=== PATIENT | female | born 2000 | race Caucasian/White ===

== ENCOUNTER 2021-12-19 13:14 | Emergency (ER) | payer OTHER ==
[2021-12-19 13:29] VITALS: TEMP 98; BMI 31.8
[2021-12-19] MEDS ORDERED: SODIUM CHLORIDE 0.9% 500 ML INFUS.BAG IV ONE (14:55)
[2021-12-19] MEDS ORDERED: ONDANSETRON 4 MG/2 ML VIAL IVPUSH ONE (14:56)
[2021-12-19] MEDS ORDERED: ACETAMINOPHEN 1000 MG/100 ML BAG IVPB ONE (14:56)
[2021-12-19] MEDS ORDERED: ONDANSETRON 4 MG/2 ML VIAL ONE (15:14)
[2021-12-19] MEDS ORDERED: ACETAMINOPHEN INJECTION 100 ML IVPB ONE (15:14)
[2021-12-19 16:19] LABS: HEMATOCRIT 37.1 % (32.4-45.2); HEMOGLOBIN 12.9 GM/dL (10.7-15.3); MCHC 34.8 g/dl (32.0-36.0); MEAN PLT VOLUME 8.3 fl (7.5-11.1); PLATELET COUNT 265 10^3/uL (134-434); RBC 4.31 M/mm3 (3.60-5.2); RDW 13.1 % (11.6-15.6); WHITE BLOOD COUNT 11.7 K/mm3 (4.0-10.0)
[2021-12-19 16:23] LABS: EPI CELLS >36 /uL (0-25.1); HYALINE CASTS 4 /uL (0-3.1); URINE APPEARANCE CLOUDY; URINE BACTERIA 2384 /uL (0-1359); URINE BILIRUBIN NEGATIVE (NEGATIVE); URINE COLOR YELLOW; URINE GLUCOSE (UA) NEGATIVE (NEGATIVE); URINE KETONE 3+ (NEGATIVE); URINE LEUK ESTERASE TRACE (NEGATIVE); URINE NITRITE NEGATIVE (NEGATIVE); URINE PROTEIN NEGATIVE (NEGATIVE); URINE UROBILINOGEN 0.2 mg/dL (0.2-1.0); URINE WBC 46 /uL (0-25.8)
[2021-12-19] MEDS ORDERED: LACTATED RINGERS SOLUTION 1000 ML INFUS.BAG IV ONE (16:32)
[2021-12-19 16:44] LABS: ALBUMIN 4.1 g/dl (3.4-5.0); CALCIUM 9.4 mg/dL (8.5-10.1)
[2021-12-19 16:45] LABS: BLOOD UREA NITROGEN 5.4 mg/dL (7-18)
[2021-12-19 16:48] LABS: CREATININE 0.5 mg/dL (0.55-1.3)
[2021-12-19 16:49] LABS: BILIRUBIN,TOTAL 0.4 mg/dL (0.2-1); TOT PROT 7.6 g/dl (6.4-8.2)
[2021-12-19 17:09] VITALS: BP 139/82; PULSE 85; RESP 16
[2021-12-19 17:37] LABS: ANISOCYTOSIS 0; MACROCYTOSIS 0
[2021-12-19 17:44] LABS: URINE RBC 62 /uL (0-23.9)
== END 2021-12-19 17:25 | disposition home or self-care (01) ==
LOC: JER 13:14
PROC: 3E0333Z Introduction of Anti-inflammatory into Peripheral Vein, Percutaneous Approach (ICD-10-PCS; principal; 2021-12-19)
PROC: 3E033GC Introduction of Other Therapeutic Substance into Peripheral Vein, Percutaneous Approach (ICD-10-PCS; 2021-12-19)
DX: O26.892 Other specified pregnancy related conditions, second trimester (principal); R10.31 Right lower quadrant pain; Z3A.18 18 weeks gestation of pregnancy
CPT/HCPCS: 36415; 76705-TC; 76775-TC; 76815; 80053; 81003; 85025; 87086; 99285-25

== ENCOUNTER 2021-12-20 21:56 | Observation (INO) | payer OTHER ==
[2021-12-20] MEDS ORDERED: ACETAMINOPHEN 1000 MG/100 ML BAG IVPB ONE (23:06)
[2021-12-20] MEDS ORDERED: ACETAMINOPHEN INJECTION 100 ML IVPB ONE (23:29)
[2021-12-20 23:51] LABS: BASO % 0.5 % (0-2.0); EOS % 0.8 % (0-4.5); HEMATOCRIT 33.7 % (32.4-45.2); HEMOGLOBIN 12.2 GM/dL (10.7-15.3); LYMPH % 15.8 % (8-40); MCH 31.2 pg (25.7-33.7); MCHC 36.2 g/dl (32.0-36.0); MEAN CELL VOLUME 86.2 fl (80-96); MEAN PLT VOLUME 7.4 fl (7.5-11.1); MONO % 8.2 % (3.8-10.2); NEUT % 74.7 % (42.8-82.8); PLATELET COUNT 242 10^3/uL (134-434); RBC 3.91 M/mm3 (3.60-5.2); RDW 12.9 % (11.6-15.6); WHITE BLOOD COUNT 8.1 K/mm3 (4.0-10.0)
[2021-12-21 00:14] LABS: SODIUM 138 mmol/L (136-145)
[2021-12-21 00:18] LABS: ALBUMIN 3.8 g/dl (3.4-5.0)
[2021-12-21 00:25] LABS: HCG,QUALITATIVE URINE Positive
[2021-12-21 00:26] LABS: ALK PHOS 62 U/L (45-117); ANION GAP 8 MMOL/L (8-16); BILIRUBIN,TOTAL 0.3 mg/dL (0.2-1); BLOOD UREA NITROGEN 7.4 mg/dL (7-18); CALCIUM 9.2 mg/dL (8.5-10.1); CHLORIDE 105 mmol/L (98-107); CO2 26 mmol/L (21-32); CREATININE 0.5 mg/dL (0.55-1.3); GLUCOSE,RANDOM 91 mg/dL (74-106); SGOT/AST 20 U/L (15-37); SGPT/ALT 47 U/L (13-61); TOT PROT 7.1 g/dl (6.4-8.2)
[2021-12-21 00:27] LABS: EPI CELLS 14 /uL (0-25.1); HYALINE CASTS 1 /uL (0-3.1); PH,URINE 6.5 (5.0-8.0); URINE APPEARANCE CLEAR; URINE BACTERIA 73 /uL (0-1359); URINE BILIRUBIN NEGATIVE (NEGATIVE); URINE COLOR YELLOW; URINE GLUCOSE (UA) NEGATIVE (NEGATIVE); URINE KETONE NEGATIVE (NEGATIVE); URINE LEUK ESTERASE NEGATIVE (NEGATIVE); URINE NITRITE NEGATIVE (NEGATIVE); URINE PROTEIN NEGATIVE (NEGATIVE); URINE RBC 29 /uL (0-23.9); URINE UROBILINOGEN 0.2 mg/dL (0.2-1.0); URINE WBC 3 /uL (0-25.8)
[2021-12-21] MEDS ORDERED: ACETAMINOPHEN 1000 MG/100 ML BAG IVPB PRN (04:07)
[2021-12-21] MEDS ORDERED: CEFTRIAXONE 1 GM/50 ML BAG ONE (05:33)
[2021-12-21] MEDS: CEFTRIAXONE 1 GM in DEXTROSE 5%-WATER - 50 ML IVPB SCH (05:39)
[2021-12-21 06:18] LABS: HEMATOCRIT 31.8 % (32.4-45.2); HEMOGLOBIN 11.1 GM/dL (10.7-15.3); MCH 30.3 pg (25.7-33.7); MCHC 34.8 g/dl (32.0-36.0); PLATELET COUNT 221 10^3/uL (134-434); RBC 3.65 M/mm3 (3.60-5.2); RDW 13.1 % (11.6-15.6)
[2021-12-21 06:35] LABS: CALCIUM 8.6 mg/dL (8.5-10.1)
[2021-12-21 06:36] LABS: ALBUMIN 3.2 g/dl (3.4-5.0); MAGNESIUM 1.4 mg/dL (1.8-2.4)
[2021-12-21 06:39] LABS: CREATININE 0.5 mg/dL (0.55-1.3); PHOSPHOROUS 3.8 mg/dL (2.5-4.9)
[2021-12-21 06:40] LABS: BILIRUBIN,TOTAL 0.3 mg/dL (0.2-1); TOT PROT 6.2 g/dl (6.4-8.2)
[2021-12-21 06:53] LABS: BLOOD UREA NITROGEN 5.5 mg/dL (7-18)
[2021-12-22 03:27] VITALS: BMI 31.6
[2021-12-22 08:24] VITALS: RESP 20
[2021-12-22 08:30] LABS: BASO % 1.2 % (0-2.0); EOS % 1.5 % (0-4.5); HEMATOCRIT 33.2 % (32.4-45.2); HEMOGLOBIN 11.7 GM/dL (10.7-15.3); MCH 30.2 pg (25.7-33.7); MCHC 35.3 g/dl (32.0-36.0); MEAN CELL VOLUME 85.6 fl (80-96); MEAN PLT VOLUME 7.9 fl (7.5-11.1); MONO % 9.4 % (3.8-10.2); NEUT % 60.9 % (42.8-82.8); PLATELET COUNT 234 10^3/uL (134-434); RBC 3.88 M/mm3 (3.60-5.2); WHITE BLOOD COUNT 5.4 K/mm3 (4.0-10.0)
[2021-12-22 08:48] LABS: CALCIUM 8.9 mg/dL (8.5-10.1)
[2021-12-22] MEDS ORDERED: ACETAMINOPHEN 1000 MG/100 ML BAG IVPB PRN (08:49)
[2021-12-22 08:52] LABS: CREATININE 0.3 mg/dL (0.55-1.3)
[2021-12-22] MEDS: CEFTRIAXONE 1 GM in DEXTROSE 5%-WATER - 50 ML IVPB SCH (09:06)
[2021-12-22 09:15] VITALS: BP 129/87; PULSE 83; TEMP 99.4
== END 2021-12-22 13:44 | disposition home or self-care (01) ==
LOC: JER 21:56 → JERBED 12-21 01:40 → J7W 12-21 23:45
PROVIDERS: ADMIT Hospitalist; ATTEND Internal Medicine
PROC: 3E033NZ Introduction of Analgesics, Hypnotics, Sedatives into Peripheral Vein, Percutaneous Approach (ICD-10-PCS; principal; 2021-12-21)
PROC: 3E03329 Introduction of Other Anti-infective into Peripheral Vein, Percutaneous Approach (ICD-10-PCS; 2021-12-21)
PROC: 3E033NZ Introduction of Analgesics, Hypnotics, Sedatives into Peripheral Vein, Percutaneous Approach (ICD-10-PCS; 2021-12-21)
DX: O26.892 Other specified pregnancy related conditions, second trimester (principal); Z3A.19 19 weeks gestation of pregnancy; R10.9 Unspecified abdominal pain
CPT/HCPCS: 0241U-QW; 36415; 74181-TC; 76705-TC; 76815; 76830-TC; 80048; 80053; 81003; 83735; 84100; 84702; 84703; 85025; 85027; 87086; 96365; 96374; 96375; 96376; 99285-25; G0378

== ENCOUNTER 2022-05-10 03:40 | Inpatient (IN) | payer OTHER ==
[2022-05-10] MEDS: DEXTROSE 5%-LACTATED RINGERS 1,000 ML IV SCH ×2 (04:30→11:00)
[2022-05-10 05:35] LABS: BASO % 0.2 % (0-2.0); EOS % 0.3 % (0-4.5); HEMATOCRIT 37.1 % (32.4-45.2); HEMOGLOBIN 12.4 GM/dL (10.7-15.3); LYMPH % 8.4 % (8-40); MCHC 33.5 g/dl (32.0-36.0); MEAN CELL VOLUME 86.8 fl (80-96); MEAN PLT VOLUME 8.5 fl (7.5-11.1); NEUT % 86.1 % (42.8-82.8); PLATELET COUNT 297 10^3/uL (134-434); RBC 4.27 M/mm3 (3.60-5.2); RDW 12.7 % (11.6-15.6); WHITE BLOOD COUNT 11.3 K/mm3 (4.0-10.0)
[2022-05-10 05:37] VITALS: BMI 36.7
[2022-05-10 05:43] LABS: INR 0.96 (0.83-1.09)
[2022-05-10 05:46] LABS: ACTIVATED PTT 24.6 SECONDS (25.2-36.5)
[2022-05-10 06:02] LABS: CALCIUM 9.5 mg/dL (8.5-10.1)
[2022-05-10 06:03] LABS: BLOOD UREA NITROGEN 6.2 mg/dL (7-18)
[2022-05-10 06:06] LABS: CREATININE 0.5 mg/dL (0.55-1.3)
[2022-05-10] MEDS ORDERED: BUTORPHANOL TARTRATE 1 MG/ML VIAL ONE (08:19)
[2022-05-10] MEDS ORDERED: BUTORPHANOL TARTRATE 1 MG/ML VIAL IVPB ONE (08:19)
[2022-05-10] MEDS ORDERED: OXYTOCIN 30 UNITS in 0.9% NS 30 UNIT/500 ML INFUS.BAG IVPB ONE (08:20)
[2022-05-10] MEDS ORDERED: OXYTOCIN 30 UNITS in 0.9% NS 30 UNIT/500 ML INFUS.BAG IVPB SCH (08:30)
[2022-05-10] MEDS ORDERED: ELECTROLYTE-148 SOLN 1,000 ML IV ONE (11:45)
[2022-05-10] MEDS ORDERED: FENTANYL/BUPIVACAINE/NS/PF - PCEA - 50 ML DISP.SYRIN EP ONE (11:46)
[2022-05-10] MEDS ORDERED: NALOXONE HCL 0.4 MG/ML VIAL IVPUSH PRN (12:30)
[2022-05-10] MEDS ORDERED: FENTANYL/BUPIVACAINE/NS/PF - PCEA - 50 ML DISP.SYRIN EP SCH (12:30)
[2022-05-10] MEDS ORDERED: FENTANYL CITRATE/PF 50 MCG/ML VIAL ONE (13:20)
[2022-05-10] MEDS ORDERED: LIDOCAINE HCL 1% PRESERVATIVE FREE - 30ML VIAL ONE (14:40)
[2022-05-10] MEDS ORDERED: OXYTOCIN 20 UNITS in 0.9% NS 20 UNIT/1,000 ML INFUS.BAG IV ONE ×3 (14:40→18:39)
[2022-05-10] MEDS ORDERED: MISOPROSTOL 200 MCG TABLET ONE (15:30)
[2022-05-10] MEDS ORDERED: BENZOCAINE 20% 57 GM BOTTLE TP PRN (15:41)
[2022-05-10] MEDS ORDERED: WITCH HAZEL 50% (TUCKS) 40 PAD/JAR PAD TP PRN (15:41)
[2022-05-10] MEDS ORDERED: BENZOCAINE 28 GM HEMORRHOIDAL OINTMENT TP PRN (15:41)
[2022-05-10] MEDS ORDERED: ACETAMINOPHEN 325 MG TABLET (FP) PO PRN (15:41)
[2022-05-10] MEDS ORDERED: BISACODYL 10 MG SUPP.RECT RC PRN (15:41)
[2022-05-10] MEDS ORDERED: MISOPROSTOL 100 MCG TABLET PV ONE (15:42)
[2022-05-10] MEDS ORDERED: OXYTOCIN 20 UNITS in 0.9% NS 20 UNIT/1,000 ML INFUS.BAG IV SCH (15:45)
[2022-05-10] MEDS ORDERED: METHYLERGONOVINE MALEATE 0.2 MG/1 ML AMP IM ONE (17:30)
[2022-05-10] MEDS ORDERED: IBUPROFEN 600 MG TABLET (FP) PO ONE (17:42)
[2022-05-10] MEDS: IBUPROFEN 600 MG TABLET (FP) PO PRN (17:44)
[2022-05-10] MEDS ORDERED: CARBOPROST TROMETHAMINE 250 MCG/ML AMPUL IM ONE (18:00)
[2022-05-10] MEDS ORDERED: oxyCODONE HCL 5 MG TABLET PO ONE (18:00)
[2022-05-10] MEDS ORDERED: oxyCODONE HCL 5 MG TABLET ONE (18:05)
[2022-05-10] MEDS ORDERED: METHYLERGONOVINE MALEATE 0.2 MG TABLET (FP) PO SCH ×2 (18:30→21:30)
[2022-05-10 18:31] LABS: BASO % 0.5 % (0-2.0); HEMATOCRIT 31.4 % (32.4-45.2); HEMOGLOBIN 10.7 GM/dL (10.7-15.3); LYMPH % 7.4 % (8-40); MCH 29.5 pg (25.7-33.7); MCHC 34.1 g/dl (32.0-36.0); MEAN CELL VOLUME 86.4 fl (80-96); MEAN PLT VOLUME 8.1 fl (7.5-11.1); MONO % 8.3 % (3.8-10.2); NEUT % 83.8 % (42.8-82.8); PLATELET COUNT 238 10^3/uL (134-434); RBC 3.63 M/mm3 (3.60-5.2); RDW 12.8 % (11.6-15.6); WHITE BLOOD COUNT 14.3 K/mm3 (4.0-10.0)
[2022-05-10 18:49] LABS: CALCIUM 8.4 mg/dL (8.5-10.1)
[2022-05-10 18:50] LABS: ALBUMIN 2.7 g/dl (3.4-5.0); BLOOD UREA NITROGEN 4.5 mg/dL (7-18)
[2022-05-10 18:53] LABS: CREATININE 0.4 mg/dL (0.55-1.3)
[2022-05-10 18:54] LABS: BILIRUBIN,TOTAL 0.6 mg/dL (0.2-1)
[2022-05-10 18:55] LABS: TOT PROT 5.7 g/dl (6.4-8.2)
[2022-05-10 18:57] LABS: INR 1.03 (0.83-1.09); PROTHROMBIN TIME (PATIENT) 11.9 SEC (9.7-13.0)
[2022-05-10 21:15] VITALS: RESP 16
[2022-05-10] MEDS: METHYLERGONOVINE MALEATE 0.2 MG TABLET (FP) PO SCH (21:30)
[2022-05-11] MEDS: METHYLERGONOVINE MALEATE 0.2 MG TABLET (FP) PO SCH ×4 (01:21→13:02)
[2022-05-11 08:37] LABS: BASO % 0.5 % (0-2.0); EOS % 0.5 % (0-4.5); HEMATOCRIT 26.5 % (32.4-45.2); HEMOGLOBIN 9.1 GM/dL (10.7-15.3); LYMPH % 11.9 % (8-40); MCH 30.1 pg (25.7-33.7); MCHC 34.4 g/dl (32.0-36.0); MEAN CELL VOLUME 87.5 fl (80-96); MONO % 9.1 % (3.8-10.2); PLATELET COUNT 200 10^3/uL (134-434); RBC 3.02 M/mm3 (3.60-5.2); WHITE BLOOD COUNT 8.6 K/mm3 (4.0-10.0)
[2022-05-11] MEDS ORDERED: DIPHTH,PERTUSS(ACELL),TET 0.5 ML DISP.SYRIN IM ONE (10:00)
[2022-05-11] MEDS ORDERED: FLU VACC QS2022-23(6MOS UP)/PF 60 MCG/0.5 ML SYRINGE IM ONE (10:00)
[2022-05-11] MEDS: IBUPROFEN 600 MG TABLET (FP) PO PRN (17:58)
[2022-05-11] MEDS ORDERED: SENNOSIDES/DOCUSATE COMBO (SENNA PLUS) TABLET (UD) PO PRN (22:00)
[2022-05-12 08:16] VITALS: BP 114/70; PULSE 91; TEMP 97.8
[2022-05-12] MEDS: DEXTROSE 5%-LACTATED RINGERS 1,000 ML IV SCH (08:53)
== END 2022-05-12 13:57 | disposition home or self-care (01) | DRG 560 ==
LOC: JDEL 03:40 → JLDR 04:15 → J3W 20:53
PROVIDERS: ADMIT Student in an Organized Health Care Education/Training Program; ATTEND Student in an Organized Health Care Education/Training Program
PROC: 10D07Z6 Extraction of Products of Conception, Vacuum, Via Natural or Artificial Opening (ICD-10-PCS; principal; 2022-05-10)
PROC: 0UC97ZZ Extirpation of Matter from Uterus, Via Natural or Artificial Opening (ICD-10-PCS; 2022-05-10)
DX: O42.02 Full-term premature rupture of membranes, onset of labor within 24 hours of rupture (principal); O72.2 Delayed and secondary postpartum hemorrhage; O99.214 Obesity complicating childbirth; E66.9 Obesity, unspecified; O32.6XX0 Maternal care for compound presentation, not applicable or unspecified; O75.81 Maternal exhaustion complicating labor and delivery; O69.81X0 Labor and delivery complicated by cord around neck, without compression, not applicable or unspecified; Z3A.39 39 weeks gestation of pregnancy; Z37.0 Single live birth
CPT/HCPCS: 36415; 59409; 80048; 80053; 85025; 85384; 85610; 85730; 86780; 86850; 86900; 86901; 87340; 88307-TC; 90715; C9803-CS; G0008; Q2036; U0003; U0005